=== PATIENT | male | born 1960 | race Caucasian/White ===

== ENCOUNTER 2018-04-28 09:57 | Emergency (ER) | payer SELFPAY ==
[2018-04-28 10:04] VITALS: PULSE 72; O2SAT 98
--- NOTE | 2018-04-28 10:34 | C.PDOC ---
History Of Present Illness 49 y/o male brought to ED via BLS for public acute ETOH intoxication. Patient admits to drinking ETOH and denies SI/HI, auditory or visual hallucinations. No other complaints at this time. Time Seen by Provider: 04/28/18 10:03 Chief Complaint (Nursing): Substance Abuse History Per: Patient History/Exam Limitations: no limitations Onset/Duration Of Symptoms: Days Current Symptoms Are (Timing): Still Present Suicide/Self Injury Attempted (Context): None Modifying Factor(s): Alcohol Past Medical History Reviewed: Historical Data, Nursing Documentation, Vital Signs Vital Signs: Last Vital Signs Temp 97.9 F 04/28/18 10:00 Pulse 72 04/28/18 10:00 Resp 18 04/28/18 10:00 BP 112/72 04/28/18 10:00 Pulse Ox 98 04/28/18 10:00 - Medical History PMH: No Chronic Diseases Surgical History: No Surg Hx Family History: States: No Known Family Hx - Social History Hx Alcohol Use: Yes Hx Substance Use: No (unknown) - Immunization History Hx Tetanus Toxoid Vaccination: No Hx Influenza Vaccination: No Hx Pneumococcal Vaccination: No Review Of Systems Constitutional: Negative for: Fever, Chills Cardiovascular: Negative for: Chest Pain Gastrointestinal: Negative for: Nausea, Vomiting Skin: Negative for: Rash Psych: Positive for: Other (Susbtance abuse). Negative for: Anxiety, Suicidal ideation Physical Exam - Physical Exam Appears: Non-toxic, No Acute Distress, Other (ETOH on breath) Skin: Warm, Dry, No Rash Head: Atraumatic, Normacephalic Eye(s): bilateral: Normal Inspection Oral Mucosa: Moist Neck: Normal ROM, Supple Cardiovascular: Rhythm Regular Respiratory: Normal Breath Sounds, No Rales, No Rhonchi, No Wheezing Gastrointestinal/Abdominal: Soft, No Tenderness, No Guarding, No Rebound ( ) Neurological/Psych: Oriented x3, Normal Speech, Normal Cognition ED Course And Treatment O2 Sat by Pulse Oximetry: 98 (RA) Pulse Ox Interpretation: Normal Medical Decision Making Medical Decision Making: etoh abuse no truama observed 5 hours in er, awake alert, ambulatory stable for dc. Disposition - Disposition Disposition: HOME/ ROUTINE Disposition Time: 14:30 Condition: STABLE Instructions: Alcohol Use - When Is Drinking a Problem? Forms: [employer] (Cit[place]) - Clinical Impression Clinical Impression: Alcohol abuse - Scribe Statement The provider has reviewed the documentation as recorded by the Evaibmichael Huang All medical record entries made by the Evaibmichael were at my direction and personally dictated by me. I have reviewed the chart and agree that the record accurately reflects my personal performance of the history, physical exam, medical decision making, and the department course for this patient. I have also personally directed, reviewed, and agree with the discharge instructions and disposition.
[2018-04-29 00:29] VITALS: BP 115/74; RESP 20; TEMP 97.3
== END 2018-04-28 14:38 | disposition home or self-care (01) ==
LOC: C.ER 09:57
DX: F10.129 Alcohol abuse with intoxication, unspecified (principal); Y90.9 Presence of alcohol in blood, level not specified